=== PATIENT | male | born 1995 | race Caucasian/White ===

== ENCOUNTER → 2016-07-21 | Outpatient (CLI) | payer OTHER ==
[~2016-07-21] MED LIST: ADDERALLXR PO; BENADRYL25 M1 PO; DEPAKOTE; DEPAKOTE PO; DEPAKOTE125 MG; DOLOBID500 MG PO; EPIPEN0.3 MG/0.1 IM; FAMOTIDINE PO; IBUPROFEN800 MG PO; KEPPRA500 MG; PREDNISONE PO; STRATTERA PO; VOLTAREN75 MG PO; VYNASE PO
--- NOTE | ~2016-07-21 | CR230 ---
[facility] A Service [facility] RADIOLOGY TEXT RESULTS PATIENT: BHAKTI HORNER LOCATION: SRA : [birth year] UNIT #: [id number] AGE: [address]: Vale Cole MD SEX: M ORDER DR: [id number] [address] [address] [id number] O MR#: [id number] Acc #: [id number] NAME: BHAKTI HORNER : 1995 SEX: M STUDY DATE/TIME: 07/21/2016 9:08 UNIT: [facility] ROOM: STUDY DESCRIPTION: CR Shoulder Min 2 View Rt Attending Physician: Vale Cole M.D. Referring Physician: Vale Cole M.D. Ordering Physician: Vale Cole M.D. Primary Care Physician: Vale Cole M.D. MEDICAL IMAGING REPORT This report is preliminary unless electronic signature is present. EXAM Right shoulder series dated 07/21/2016. COMPARISON None HISTORY Softball injury about a month ago. The right shoulder pain. FINDINGS 3 views of the right shoulder were obtained. AP view with internal and external rotation of the shoulder girdle shows satisfactory relationship of the humeral head and glenoid fossa. The joint space is normal. There is no identifiable fracture or dislocation or bony destructive process about the shoulder girdle anatomy. The acromioclavicular joint is normal. There is no radiopaque foreign body in the region. IMPRESSION Normal shoulder. Dictated by... Luis Dale M.D. THIS IS AN ELECTRONICALLY VERIFIED REPORT Luis Dale M.D. at 07/21/2016 3:24 PM CPR/tmw TD: 07/21/2016 11:27 [facility] A Service [facility] RADIOLOGY TEXT RESULTS PATIENT: BHAKTI HORNER LOCATION: SRAD : 94 UNIT #: [id number] AGE: [address]: Vale Cole MD SEX: M ORDER DR: JOB #: [id number] MEDICAL IMAGING REPORT Page 1 of 1
== END | disposition home or self-care (01) ==
LOC: SRAD 09:02
DX: M25.511 Pain in right shoulder (principal)
CPT/HCPCS: 73030

== ENCOUNTER 2016-11-29 19:48 | Emergency (ER) | payer OTHER ==
[~2016-11-29] VITALS: Ht 182.9 cm; Wt 115.9 kg
[~2016-11-29 19:48] MED LIST changes: -DEPAKOTE125 MG
[2016-11-29] MEDS ORDERED: DEPAKOTE125 MG (20:00)
== END 2016-11-29 21:06 | disposition home or self-care (01) ==
LOC: SED 19:48
DX: H91.91 Unspecified hearing loss, right ear (principal); F17.210 Nicotine dependence, cigarettes, uncomplicated; Z79.899 Other long term (current) drug therapy
CPT/HCPCS: 99283